=== PATIENT | male | born 1940 | race Caucasian/White ===

== ENCOUNTER 2023-07-16 12:52 | Outpatient (CLI) | payer MEDICARE, OTHER ==
[~2023-07-16 12:52] MED LIST: Iopamidol 370 76% 100 ML VIAL ONE
== END 2023-07-16 12:53 | disposition home or self-care (01) ==
LOC: CSHCT 12:52
PROVIDERS: ATTEND Specialist
DX: I65.29 Occlusion and stenosis of unspecified carotid artery (principal); I65.23 Occlusion and stenosis of bilateral carotid arteries
CPT/HCPCS: 70498; 82565

== ENCOUNTER 2024-09-11 06:25 | Inpatient (IN) | payer MEDICARE ==
[2024-09-11 07:02] LABS: #Basophils 0.04 10x3/uL (0.0-0.2); #Eosinophils 0.22 10x3/uL (0.0-0.5); #Neutrophils 4.68 10x3/uL (1.5-8.4); %Basophils 0.6 % (0.0-2.0); %Eosinophils 3.1 % (0.0-6.0); %Lymphocytes 19.5 % (18.0-47.0); %Neutrophils 66.5 % (40.0-75.0); Hematocrit 37.2 % (38.8-50.0); Hemoglobin 12.5 g/dL (13.5-17.5); Mean Corpuscular HGB CONC 33.6 g/dL (32.0-36.0); Mean Corpuscular Hemoglobin 31.6 pg (27.0-33.0); Mean Corpuscular Volume 94.2 fL (81.2-95.1); Mean Platelet Volume 10.3 fL (7.4-10.4); Platelet Count 190 10x3/uL (150-450); RBC Distribution Width 13.4 % (11.5-14.5); Red Blood Cell (RBC) Count 3.95 10x6/uL (4.32-5.72); White Blood Cell (WBC) Count 7.03 10x3/uL (3.5-10.5)
[2024-09-11 07:13] LABS: INR-International Normal Ratio 1.1; PTT 28.9 sec (22.0-33.0); Prothrombin Time 11.4 sec (9.5-12.1)
[2024-09-11] MEDS ORDERED: Heparin 10,000 UNITS/ 10 ML VIAL ONE (07:14)
[2024-09-11] MEDS ORDERED: Lidocaine 1% (PF) 30 ML VIAL ONE (07:14)
[2024-09-11] MEDS ORDERED: Ondansetron PF 4 MG/2 ML Vial ONE (07:14)
[2024-09-11] MEDS ORDERED: PHENYLEPHRINE-NS 100 MCG/ML 10 ML SYRINGE ONE (07:14)
[2024-09-11] MEDS ORDERED: Atropine Sulfate 1 mg/1 ml Vial ONE (07:15)
[2024-09-11] MEDS ORDERED: Midazolam HCl 2 mg/2 ml Vial ONE (07:16)
[2024-09-11] MEDS ORDERED: fentaNYL 50 mcg/mL 1 mL Vial ONE (07:16)
[2024-09-11 07:17] LABS: Anion Gap 16 mmol/L (10-20); BUN (Urea Nitrogen) 33 mg/dL (8.4-25.7); Calc. Creatinine Clearance 0 mL/min (70-130); Calcium 10.1 mg/dL (7.8-10.44); Carbon Dioxide 21 mmol/L (23-31); Chloride 109 mmol/L (98-107); Estimated GFR 45; Glucose 116 mg/dL (83-110); Sodium 142 mmol/L (136-145)
[2024-09-11 07:24] VITALS: BP 165/72; TEMP 97.8
[2024-09-11] MEDS ORDERED: Phenylephrine 40 MG/NS 250 ML 0 ML ONE (07:26)
[2024-09-11] MEDS ORDERED: Acetylcysteine 800 MG/4 ML VIAL ONE (07:26)
[2024-09-11] MEDS ORDERED: hydrALAZINE 20 MG/ML VIAL ONE (09:33)
[2024-09-11] MEDS ORDERED: Iopamidol 300 61% 100 ML VIAL FS ONE (12:49)
== END 2024-09-11 12:56 | disposition home or self-care (01) | DRG 68 ==
LOC: CSHTELE 06:25 → EDSTATUS 08:42
PROVIDERS: ADMIT Specialist; ATTEND Specialist
PROC: B31C1ZZ Fluoroscopy of Bilateral External Carotid Arteries using Low Osmolar Contrast (ICD-10-PCS; principal; 2024-09-11)
PROC: B3181ZZ Fluoroscopy of Bilateral Internal Carotid Arteries using Low Osmolar Contrast (ICD-10-PCS; 2024-09-11)
DX: I65.23 Occlusion and stenosis of bilateral carotid arteries (principal); I10 Essential (primary) hypertension; E78.2 Mixed hyperlipidemia; K21.9 Gastro-esophageal reflux disease without esophagitis; Z96.653 Presence of artificial knee joint, bilateral; Z98.890 Other specified postprocedural states; Z90.49 Acquired absence of other specified parts of digestive tract; Z87.891 Personal history of nicotine dependence; Z79.899 Other long term (current) drug therapy
CPT/HCPCS: 36222; 71045; 80048; 85025; 85610; 85730; 93005; 99152; 99153; C1769; C1894; J0360; J0461; J1644; J2250; J2405; J3010; Q9967